=== PATIENT | female | born 1950 | race African-American/Black ===

== ENCOUNTER 2018-08-16 12:36 | Emergency (ER) | payer MEDICARE, MEDICAID ==
[~2018-08-16] VITALS: Ht 170.2 cm; Wt 82.0 kg
[2018-08-16] MEDS ORDERED: IBUPROFEN 800MG TABLET PO ONE (14:45)
[2018-08-16 16:51] VITALS: BP 137/75
== END 2018-08-16 16:56 | disposition home or self-care (01) ==
LOC: ER 12:36
DX: S92.344A Nondisplaced fracture of fourth metatarsal bone, right foot, initial encounter for closed fracture (principal); I10 Essential (primary) hypertension; Z96.641 Presence of right artificial hip joint; W01.0XXA Fall on same level from slipping, tripping and stumbling without subsequent striking against object, initial encounter; Y93.89 Activity, other specified; Y92.89 Other specified places as the place of occurrence of the external cause
CPT/HCPCS: 73502; 73610; 73630; 99283